=== PATIENT | female | born 1990 | race Caucasian/White ===

== ENCOUNTER 2017-02-01 14:31 | Emergency (ER) | payer BC ==
--- NOTE | ~2017-02-01 | CT2 ---
[facility] A Service of [facility] RADIOLOGY TEXT RESULTS PATIENT: ROSSANA AYALA LOCATION: SED : 92 UNIT #: [id number] AGE: [address]: Syeda Morgan APRN SEX: F ORDER DR: [id number] [place] [address] [id number] E MR#: [id number] Acc #: [id number] NAME: ROSSANA AYALA : 1990 SEX: F STUDY DATE/TIME: 02/01/2017 16:01 UNIT: SED ROOM: STUDY DESCRIPTION: CT Abd and Pelv W Cont Attending Physician: Syeda Morgan A.P.R.N. Ordering Physician: Syeda Morgan A.P.R.N. Primary Care Physician: [facility]. MEDICAL IMAGING REPORT This report is preliminary unless electronic signature is present. EXAM CT of the abdomen and pelvis with contrast INDICATIONS 26-year-old female with abdominal pain and bloating for 3-[address] scan of the abdomen and pelvis was performed following the administration of IV contrast. Coronal and sagittal reformatted images were obtained. Compared with 06/12/2011. This CT exam was performed with one or more of the following radiation dose reduction techniques: Automatic exposure control, adjustment of mA and/or kV according to patient size, and iterative reconstruction. FINDINGS There is dependent atelectasis in the lung bases. The liver and gallbladder are unremarkable. The spleen is unremarkable. Kidneys and adrenal glands and pancreas are unremarkable. PELVIS: No free fluid. IUD. Normal appendix. Colon unremarkable. Bilateral physiologic adnexal cysts. No inflammatory stranding in the pelvis. The bone windows are unremarkable. IMPRESSION 1. No acute intraabdominal or pelvic abnormality. 2. Normal gallbladder and appendix. 3. Bilateral physiologic adnexal cysts. There is no evidence of any inflammatory stranding. 4. No bowel obstruction. [facility] A Service [facility] RADIOLOGY TEXT RESULTS PATIENT: ROSSANA AYALA LOCATION: SED : 92 UNIT #: [id number] AGE: [address]: Syeda Morgan APRN SEX: F ORDER DR: Dictated by... Carlos Cortes M.D. THIS IS AN ELECTRONICALLY VERIFIED REPORT Carlos Cortes M.D. at 02/02/2017 4:43 PM ERENDIRA/farzana TD: 02/02/2017 01:45 JOB #: [id number] MEDICAL IMAGING REPORT
[~2017-02-01 14:31] MED LIST: B COMPLEX1 CA1 PO; BACTRIM DS TABL1 TA1 PO; BACTRIM DS TABL1 TA2 PO; BIRTH CONTROL PILL; DEPO SHOT; DIAZEPAM PO; DOXYCYCLINE150 MG PO; FLEXERIL PO; FLEXERIL10 MG PO; GLUCOPHAGE XR500 MG PO; IBUPROFEN PO; MEDROL4 MG/DOSE- PO; MIRENA; MOTRIN600 M1 PO; NAPROSYN500 MG PO; NO MEDICATIONS; PERCOCET 5-3251 TAB PO; PRILOSEC20 MG PO; TYLENOL #3 PO; VIT B12 PO; VITAL-D RX TABL1 TAB PO; VITAMIN D1000 UNI2 PO; WELLBUTRIN SR150 MG PO; ZANTAC PO; ZOLOFT50 MG PO; ZYRTEC PO
[2017-02-01 15:03] LABS: BASOPHIL# 0.1 X10e3 (0-0.3); BASOPHIL% 0.5 % (0-2.5); EOSINOPHIL# 0.2 X10e3 (0-0.7); EOSINOPHIL% 1.8 % (0.0-7.0); HEMATOCRIT 41.5 % (35.0-45.0); HEMOGLOBIN 14.1 gm/dL (12.0-16.0); LYMPHOCYTE# 1.9 X10e3 (1.0-3.5); LYMPHOCYTE% 19.6 % (17.0-45.0); MEAN CELL VOLUME 85.8 FL (83-96); MEAN CORPUSCULAR HEMOGLOBIN 29.2 PG (28-34); MEAN PLATELET VOLUME 8.2 FL (6.5-11.5); MONOCYTE# 0.7 X10e3 (0-1.0); MONOCYTE% 6.9 % (3.0-12.0); NEUTROPHIL# 6.8 X10e3 (1.5-7.1); NEUTROPHIL% 71.2 % (40-75); PLATELET COUNT 246 X10e3 (140-420); RED BLOOD COUNT 4.84 X10e (3.90-5.30); RED CELL DISTRIBUTION WIDTH 13.3 % (11.0-15.5); WHITE BLOOD COUNT 9.5 X10e3 (4.0-10.5)
[2017-02-01 15:21] LABS: ALBUMIN SERUM 4.2 g/dL (3.5-5.0); ALKALINE PHOSPHATASE 66 U/L (32-92); ALT (SGPT) 19 U/L (10-40); AMYLASE 17 U/L (0-46); AST (SGOT) 21 U/L (10-42); BILIRUBIN,TOTAL 0.4 mg/dL (0.2-2.0); BLOOD UREA NITROGEN 8 mg/dL (9-23); BUN/CREATININE RATIO 11.42; CALCIUM SERUM 9.2 mg/dL (8.4-10.2); CARBON DIOXIDE 23 mmol/L (22-31); CHLORIDE 107 mmol/L (100-111); CREATININE SERUM 0.7 mg/dL (0.6-1.4); GLOM FILT RATE Estimated ABOVE60 mL/min (>60); GLUCOSE FASTING 87 mg/dL (70-110); LIPASE 26 U/L (22-51); POTASSIUM 3.7 mmol/L (3.5-5.1); PROTEIN TOTAL SERUM 7.5 g/dL (6.0-8.3); SODIUM 137 mmol/L (135-145)
[2017-02-01 15:28] LABS: URINE SOURCE CLEAN CATCH
[2017-02-01 15:31] LABS: URINE APPEARANCE CLEAR; URINE BILIRUBIN NEG (NEG); URINE BLOOD NEG (NEG); URINE COLOR YELLOW; URINE GLUCOSE NEG (NORM); URINE KETONE NEG (NEG); URINE LEUKOCYTE ESTERASE NEG (NEG); URINE NITRATE NEG (NEG); URINE PH 7.5 (5-8); URINE PROTEIN NEG (NEG); URINE SPECIFIC GRAVITY 1.015 (1.003-1.035); URINE UROBILINOGEN 0.2 MG/DL (NORM)
[2017-02-01 15:37] LABS: DIFF IND NO
[2017-02-01 15:38] LABS: MICRO INDICATED? NO
[2017-02-01 15:44] LABS: BILIRUBIN, DIRECT <0.1 mg/dL (0.0-0.2); BILIRUBIN,INDIRECT 0.3 mg/dL (0.0-0.9)
[2017-02-03 13:03] LABS: CHLAMYDIA TRACH Not Detected (Not Detected); N GONOR Not Detected (Not Detected)
== END 2017-02-01 17:25 | disposition home or self-care (01) ==
LOC: SED 14:31
PROVIDERS: Nurse Practitioner
DX: N83.202 Unspecified ovarian cyst, left side (principal); N83.201 Unspecified ovarian cyst, right side; K21.9 Gastro-esophageal reflux disease without esophagitis; F17.210 Nicotine dependence, cigarettes, uncomplicated; Z88.8 Allergy status to other drugs, medicaments and biological substances
CPT/HCPCS: 36415; 74177; 80048; 80076; 81003; 82150; 83690; 84703; 85025; 87210; 87491; 87591; 87808; 87905; 96361; 96374; 96375; 99284; C9113; J1885; J2405; J2550; Q9967